=== PATIENT | male | born 1980 | race Caucasian/White ===

== ENCOUNTER 2018-11-07 06:16 | Emergency (ER) | payer MEDICAID ==
[~2018-11-07] VITALS: Ht 175.3 cm; Wt 95.3 kg
[2018-11-07 06:19] VITALS: BP_SYST 159
[2018-11-07] MEDS ORDERED: NACL 0.9% 1,000 ML IV ONE (06:45)
[2018-11-07] MEDS ORDERED: KETOROLAC TROMETHAMINE 30 MG VIAL IVP ONE (06:45)
[2018-11-07 07:48] VITALS: BP_SYST 159
== END 2018-11-07 07:48 | disposition home or self-care (01) ==
LOC: SED 06:16
DX: J11.1 Influenza due to unidentified influenza virus with other respiratory manifestations (principal); R05 Cough; M79.10 Myalgia, unspecified site; R03.0 Elevated blood-pressure reading, without diagnosis of hypertension
CPT/HCPCS: 96374; 99283; J1885; J7030

== ENCOUNTER 2021-05-26 22:59 | Emergency (ER) | payer MEDICAID ==
[~2021-05-26] VITALS: Ht 177.8 cm; Wt 95.3 kg
[2021-05-26 23:10] VITALS: BP_SYST 159
--- NOTE | 2021-05-26 23:36 | NUR ---
EKG performed at BS by Caitlyn JEROME. Physician given copy of EKG for review.
--- NOTE | 2021-05-26 23:45 | NUR ---
Placed in room 6. Placed on monitor worker, blood pressure machine and pulse oximeter. To gown for exam. Side rails up. Report given to Grzegorz BAGLEY.
--- NOTE | 2021-05-26 23:46 | NUR ---
Came in ER ambulatory from home this 40 year old male, breathing spontaneously at room air, not in distress noted. With chief complaints of Chest and back pain tonight, 02/23. no known medical/no surgical history, no known allergy. Vital signs stable.
[2021-05-27] MEDS ORDERED: ASPIRIN 81 MG TAB.CHEW PO ONE
--- NOTE | 2021-05-27 00:01 | NUR ---
Seen and examined by Dr. Yuan
--- NOTE | 2021-05-27 00:20 | NUR ---
# 20 gauge angiocath placed to left ac. Use of asceptic technique. Opsite placed over site. Blood return noted. Blood for lab drawn from site. Flushed with 10 cc of normal saline. No evidence of infiltration noted. Patient tolerated well.
[2021-05-27 00:39] LABS: BASOPHILS # (AUTO) 0.1 K/uL (0.0-0.2); BASOPHILS % (AUTO) 0.6 % (0.0-2.0); EOSINOPHILS # (AUTO) 0.4 K/uL (0.0-0.4); EOSINOPHILS % (AUTO) 2.6 % (0.0-4.0); HEMATOCRIT 44.5 % (36-54); HEMOGLOBIN 15.1 g/dL (14.0-18.0); LYMPHOCYTES # (AUTO) 3.2 K/uL (1.0-5.5); LYMPHOCYTES % (AUTO) 22.3 % (20.5-51.5); MEAN CORPUSCULAR HEMOGLOBIN 32 pg (27-31); MEAN CORPUSCULAR HGB CONC 34 % (32-36); MEAN CORPUSCULAR VOLUME 95 fL (79.0-98.0); MONOCYTES # (AUTO) 1.6 K/uL (0.0-1.0); MONOCYTES % (AUTO) 11.1 % (1.7-9.3); NEUTROPHILS # (AUTO) 9.2 K/uL (1.8-7.7); NEUTROPHILS % (AUTO) 63.4 % (40.0-70.0); PLATELET COUNT (AUTO) 269 K/uL (130-430); RED BLOOD CELL COUNT(AUTO) 4.71 MIL/uL (4.2-6.2); RED CELL DISTRIBUTION WIDTH 12.7 % (9.0-15.0); WHITE BLOOD COUNT (AUTO) 14.5 K/uL (4.8-10.8)
[2021-05-27 00:46] LABS: CALCIUM 8.6 mg/dL (8.4-11.0); CREATININE 1.34 mg/dL (0.55-1.30); POTASSIUM 4.2 mmol/L (3.5-5.1)
[2021-05-27 00:53] LABS: ALBUMIN 3.5 g/dL (3.4-4.8); TOTAL BILIRUBIN 0.2 mg/dL (0.0-1.0)
[2021-05-27] MEDS ORDERED: MORPHINE 4 MG INJ. 4 MG/ML VIAL IVP ONE (01:30)
--- NOTE | 2021-05-27 01:46 | NUR ---
Complained of chest pain, Morphine 4mg IV once given as ordered, health teaching provided and verbalized understanding
--- NOTE | 2021-05-27 03:08 | NUR ---
Repeat ECG done,sinus rhythm noted, seen by Dr. Yuan
--- NOTE | 2021-05-27 04:02 | NUR ---
i&c tech at beside, blood drawn for repeat troponin
[2021-05-27 05:51] VITALS: BP_SYST 136
--- NOTE | 2021-05-27 05:51 | NUR ---
Patient given written and verbal discharge instructions and verbalizes understanding. ER MD discussed with patient the results and treatment provided. Patient in stable condition. ID arm band removed. IV catheter removed intact and dressing applied, no active bleeding. No Rx of given. Patient educated on pain management and to follow up with PMD. Pain Scale 0/10. Opportunity for questions provided and answered.
== END 2021-05-27 05:51 | disposition home or self-care (01) ==
LOC: SED 22:59
DX: R07.2 Precordial pain (principal); R06.02 Shortness of breath
CPT/HCPCS: 36415; 71045; 80053; 82550; 83880; 84484; 85025; 85379; 93005 ×2; 96374; 99285; J2270

== ENCOUNTER 2022-07-09 23:04 | Emergency (ER) | payer SELFPAY ==
[~2022-07-09] VITALS: Ht 177.8 cm; Wt 108.9 kg
[2022-07-09 23:16] VITALS: BP_SYST 163
[2022-07-10] MEDS ORDERED: AMOXICILLIN/CLAVULANATE POTASSIUM 875 MG TABLET PO ONE
[2022-07-10] MEDS ORDERED: DIPHTH,PERTUSS(ACELL),TET VAC 0.5 ML VIAL (Tdap) I.M. ONE
[2022-07-10] MEDS ORDERED: AUG875 PO (00:23)
== END 2022-07-10 00:28 | disposition home or self-care (01) ==
LOC: SED 23:04
DX: S81.811A Laceration without foreign body, right lower leg, initial encounter (principal); Z79.899 Other long term (current) drug therapy; X58.XXXA Exposure to other specified factors, initial encounter; Y93.89 Activity, other specified; Y92.89 Other specified places as the place of occurrence of the external cause; Y99.8 Other external cause status
CPT/HCPCS: 90715; 99283